=== PATIENT | male | born 1990 | race American Indian/Alaskan Native ===

== ENCOUNTER 2016-08-23 18:43 | Emergency (ER) | payer SELFPAY ==
[2016-08-23 18:53] VITALS: BP 127/77; PULSE 76; RESP 16; TEMP 98.7; O2SAT 98
[2016-08-23] MEDS ORDERED: TDAP Vaccine 0.5 mL Syr IM ONE (18:55)
[2016-08-23] MEDS ORDERED: Oxycodone/Acetaminophen 5/325 mg Tab PO STA (18:55)
--- NOTE | 2016-08-23 18:59 | ED PDOC ---
Arrival/HPI - General Chief Complaint: Finger,Hand,&Wrist Time Seen by Provider: 08/23/16 18:55 Historian: Patient - History of Present Illness Narrative History of Present Illness (Text): 08/23/16 18:56 26 y/o male, no pmh, nkda, last tetanus over 10 years ago, c/o rt. hand 4th digit finger injury from the car door. Pt. slammed by the car door on the rt. hand 4th digit yesterday, aching pain, nail turned purple with pain, sustained mild abrasion, no numbness or tingling, no difficulty bending or extending the finger, no fever or chills, no other medical or psychological complaints. Past Medical History - Provider Review Nursing Documentation Reviewed: Yes - Psychiatric Hx Psychophysiologic Disorder: No Hx Substance Use: No Family/Social History - Physician Review Nursing Documentation Reviewed: Yes Family/Social History: Unknown Family HX Smoking Status: Heavy Smoker > 10 Cigarettes Daily Hx Alcohol Use: Yes Frequency of alcohol use: Socially Hx Substance Use: No Allergies/Home Meds Allergies/Adverse Reactions: Allergies No Known Allergies Allergy (Verified 08/23/16 18:49) Review of Systems - Review of Systems Constitutional: absent: Fatigue, Fevers Eyes: absent: Vision Changes ENT: absent: Hearing Changes Respiratory: absent: SOB, Cough Cardiovascular: absent: Chest Pain Gastrointestinal: absent: Abdominal Pain, Diarrhea, Nausea, Vomiting Musculoskeletal: Arthralgias. absent: Back Pain, Neck Pain, Joint Swelling, Myalgias Skin: Other (+abrasion). absent: Rash, Pruritis, Skin Lesions, Laceration, Abscess, Ulcer, Cellulitis Neurological: absent: Headache, Dizziness, Focal Weakness Physical Exam Vital Signs Reviewed: Yes Vital Signs Temp Pulse Resp BP Pulse Ox 08/23/16 18:50 98.7 F 76 16 127/77 98 Temperature: Afebrile Blood Pressure: Normal Pulse: Regular Respiratory Rate: Normal Appearance: Positive for: Well-Appearing, Non-Toxic Pain Distress: Severe Mental Status: Positive for: Alert and Oriented X 3 - Systems Exam Head: Present: Atraumatic, Normocephalic Pupils: Present: PERRL Extroacular Muscles: Present: EOMI Conjunctiva: Present: Normal Mouth: Present: Moist Mucous Membranes Neck: Present: Normal Range of Motion Respiratory/Chest: Present: Clear to Auscultation, Good Air Exchange. No: Respiratory Distress, Accessory Muscle Use Cardiovascular: Present: Regular Rate and Rhythm, Normal S1, S2. No: Murmurs Abdomen: Present: Normal Bowel Sounds. No: Tenderness, Distention, Peritoneal Signs Back: Present: Normal Inspection Upper Extremity: Present: Normal Inspection, Other (Rt. hand 4th digit: visible subungal hematoma 100% noted on the nail along with superficial abrasion noted on the base of the nail border, FROM without limitation, senation intact, motor 5/5, +Radial pulse, capillary refill< 2 seconds, neurovascular intact, motor 5/ 5. ). No: Cyanosis, Edema Lower Extremity: Present: Normal Inspection. No: Edema Neurological: Present: GCS=15, CN II-XII Intact, Speech Normal Skin: Present: Warm, Dry, Normal Color. No: Rashes Psychiatric: Present: Alert, Oriented x 3, Normal Insight, Normal Concentration Medical Decision Making ED Course and Treatment: 08/23/16 18:59 -tetanus -motrin and percocet -xray show no fracture or dislocation. -sensation intact, motor 5/5, wound irrigate with normal saline, clean with betadine, #16 gaugze needle triphinated the nail approx. 1.5cc of dark red blood drained, bacitracin and gauze dressing. -wound irrigate with normal saline, clean with betadine, bacitracin and gauze dressing. -Discharge home with finger splint, motrin, keflex, bacitracin ointment, keep the dressing dry and clean for 24 hours, ice compression, follow up with your own pmd and hand specialist within 2 days, return to the ER for any new or worsening signs or symptoms. - RAD Interpretation Radiology Orders: 08/23/16 18:55 HAND RIGHT 4TH DIGIT (FINGER) [RAD] Stat normal right hand radiograph Check Inspector: Radiologist - Medication Orders Current Medication Orders: Discontinued Medications Ibuprofen (Motrin Tab) 800 mg PO STAT STA Stop: 08/23/16 18:56 Last Admin: 08/23/16 19:21 Dose: 800 mg Oxycodone/Acetaminophen (Percocet 5/325 Mg Tab) 1 tab PO STAT STA Stop: 08/23/16 18:56 Last Admin: 08/23/16 19:20 Dose: 1 tab Tetanus/Reduced Diphtheria/Acell Pertussis (Boostrix Vaccine Inj) 0.5 ml IM .ONCE ONE Stop: 08/23/16 18:56 Last Admin: 08/23/16 19:21 Dose: 0.5 ml - 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 Disposition/Present on Arrival - Present on Arrival Any Indicators Present on Arrival: No History of DVT/PE: No History of Uncontrolled Diabetes: No Urinary Catheter: No History of Decub. Ulcer: No History Surgical Site Infection Following: None - Disposition Have Diagnosis and Disposition been Completed?: Yes Diagnosis: Hematoma, subungual, finger, Fingertip contusion Disposition: HOME/ ROUTINE Disposition Time: 19:01 Patient Plan: Discharge Condition: GOOD Additional Instructions: Discharge home with finger splint, motrin, keflex, bacitracin ointment, keep the dressing dry and clean for 24 hours, ice compression, follow up with your own pmd and hand specialist within 2 days, return to the ER for any new or worsening signs or symptoms. Prescriptions: Bacitracin Ointment [Bacitracin] 1 appful TOP BID #15 g Cephalexin [Keflex] 500 mg PO TID #21 capsule Ibuprofen [Motrin Tab] 600 mg PO QID PRN #24 tab PRN Reason: Other Referrals: Kurt Moe MD [Staff Provider] - Follow up with primary Alfie Graham MD [Staff Provider] - Follow up with primary [facility] at [facility] [place] [Outside] - Follow up with primary Forms: WORK NOTE
--- NOTE | 2016-08-24 10:24 | RAD ---
PROCEDURE: Right Hand and 4th digit Radiographs. HISTORY: rt. hand 4th digit distal tuft injury COMPARISON: None. FINDINGS: BONES: Normal. No fracture. JOINTS: Normal. No osteoarthritic changes. SOFT TISSUES: Normal. OTHER FINDINGS: None. IMPRESSION: Normal right hand radiographs.
== END 2016-08-23 19:29 | disposition home or self-care (01) ==
LOC: ED 18:43
DX: S60.041A Contusion of right ring finger without damage to nail, initial encounter (principal); W22.8XXA Striking against or struck by other objects, initial encounter; Z23 Encounter for immunization; F17.210 Nicotine dependence, cigarettes, uncomplicated